=== PATIENT | male | born 1975 | race Caucasian/White ===

== ENCOUNTER 2018-09-11 18:38 | Emergency (ER) | payer MEDICAID, OTHER ==
[~2018-09-11] VITALS: Ht 172.7 cm; Wt 90.6 kg
[2018-09-11 18:45] VITALS: Ht 172.7 cm; Wt 90.6 kg
[2018-09-11] MEDS ORDERED: IBUP-1542 PO (19:48)
[2018-09-11] MEDS ORDERED: HYDR25TA6 PO (19:48)
[2018-09-11] MEDS ORDERED: NICARDipine HCL 30 MG CAPSULE PO ONE (20:00)
[2018-09-11] MEDS ORDERED: IBUPROFEN 800 MG TAB PO ONE (20:00)
[2018-09-11 20:59] VITALS: BP 162/98; PULSE 85; RESP 18
--- NOTE | 2018-09-11 22:08 | ERD ---
ER Documentation Chief Complaint Chief Complaint [facility] starting today. htn. no n/v complaint HPI Patient is a 43-year-old male with hypertension who presents with high blood pressure and headache. He has a posterior left sided headache which radiates to his left shoulder. He felt it today at 4 PM. Still there. He has had no treatment as of yet. He denies fevers. Upon review of old medical records this is the patient's first visit to the emergency department. He does not remember the name of his primary doctor. ROS All systems reviewed and are negative except as per history of present illness. Medications Home Meds Active Scripts Hydrochlorothiazide* (Hydrochlorothiazide*) 25 Mg Tab, 25 MG PO DAILY, #30 TAB Prov:KYAW CORREA MD 09/11/18 Ibuprofen* (Motrin*) 600 Mg Tab, 600 MG PO Q6H PRN for PAIN AND OR ELEVATED TEMP, #30 TAB Prov:KYAW CORREA MD 09/11/18 Allergies Allergies: Coded Allergies: Penicillins (Verified Allergy, Unknown, rash, 09/11/18) PMhx/Soc History of Surgery: No Anesthesia Reaction: No Hx Neurological Disorder: No Hx Respiratory Disorders: No Hx Cardiac Disorders: Yes (HTN) Hx Psychiatric Problems: No Hx Miscellaneous Medical Probl: No Hx Alcohol Use: Yes (occasionally) Hx Substance Use: No Hx Tobacco Use: Yes (occasionally) Smoking Status: Current some day smoker FmHx Family History: No coronary disease Physical Exam Vitals Vital Signs Date Temp Pulse Resp B/P (MAP) Pulse Ox O2 O2 Flow FiO2 Time Delivery Rate 09/11/18 97.7 85 18 162/98 99 Room Air 20:59 (119) 09/11/18 63 18 190/116 97 Room Air 20:30 (140) 09/11/18 58 18 201/138 99 Room Air 20:00 (159) 09/11/18 97.7 72 18 193/127 97 18:45 (149) Physical Exam Const: No acute distress Head: Atraumatic Eyes: Normal Conjunctiva ENT: Normal External Ears, Nose and Mouth. Neck: Full range of motion. No meningismus. Resp: Clear to auscultation bilaterally Cardio: Regular rate and rhythm, no murmurs Abd: Soft, non tender, non distended. Normal bowel sounds Skin: No petechiae or rashes Back: No midline or flank tenderness Ext: No cyanosis, or edema Neur: Awake and alert, cranial nerves II through XII are intact, strength is 5 out of 5 in all 4 tremors, no slurred speech Psych: Normal Mood and Affect Results 24 hrs Current Medications Medications Dose Sig/Nisreen Start Time Status Last (Trade) Ordered Route PRN Stop Time Admin Dose Reason Admin Nicardipine 30 mg ONCE ONCE 09/11/18 DC 09/11/18 HCl PO 20:00 19:59 (Cardene) 09/11/18 20:01 Ibuprofen 800 mg ONCE ONCE 09/11/18 DC 09/11/18 (Motrin) PO 20:00 19:58 09/11/18 20:01 Procedures/MDM Patient is a 43-year-old male with hypertension who presents with high blood pressure and headache. I doubt stroke, intracranial mass, or bleed. I believe the risk of doing a CT scan of the brain outweigh the benefits. The patient will be discharged after getting a dose of Cardene and ibuprofen. The patient will be given a prescription for HIDA chlorothiazide and ibuprofen. The patient can return for any worsening symptoms. Departure Diagnosis: Primary Impression: Hypertension Hypertension type: essential hypertension Qualified Codes: I10 - Essential (primary) hypertension Additional Impression: Headache Headache type: unspecified Headache chronicity pattern: acute headache Intractability: not intractable Qualified Codes: R51 - Headache Condition: Fair Patient Instructions: Self-Care for Headaches, High Blood Pressure (Hypertension) Referrals: Your doctor Additional Instructions: Call your primary care doctor TOMORROW for an appointment during the next 1-2 days.See the doctor sooner or return here if your condition worsens before your appointment time. KYAW CORREA MD September 11, 2018 22:08
== END 2018-09-11 21:15 | disposition home or self-care (01) ==
LOC: E/R 18:38
DX: I10 Essential (primary) hypertension (principal); R40.2142 Coma scale, eyes open, spontaneous, at arrival to emergency department; R40.2362 Coma scale, best motor response, obeys commands, at arrival to emergency department; R40.2252 Coma scale, best verbal response, oriented, at arrival to emergency department; F17.210 Nicotine dependence, cigarettes, uncomplicated
CPT/HCPCS: Z7502; Z7610; 99283